=== PATIENT | male | born 2000 | race Two or more races ===

== ENCOUNTER 2019-01-05 20:22 | Emergency (ER) | payer OTHER ==
[2019-01-05 20:28] VITALS: BP 122/67; PULSE 64; TEMP 97.9; BMI 21.4
[2019-01-05] MEDS ORDERED: BACITRACIN 15 GM TUBE TOPICAL OINTMENT TP ONE (21:01)
--- NOTE | 2019-01-05 21:06 | PDOC ---
History of Present Illness - General Chief Complaint: Wound Stated Complaint: leg swelling Time Seen by Provider: 01/05/19 20:47 History Source: Patient Exam Limitations: No Limitations - History of Present Illness Initial Comments: 01/05/19 21:06 HISTORY OF PRESENT ILLNESS: 18-year-old male denies medical history presents emergency department for evaluation of redness and pain to his hip. Patient states she's had the pain for approximately one week after sliding on an indoor soccer field block playing soccer. Reported immediately had some road rash to his left hip after sliding but since that time erythema has progressed to 2 separate areas 1 immediately above and the other one below the initial area of redness. He denies any fevers, chills, discharge or drainage from the wounds. No recent travel or sick contacts. PAST MEDICAL HISTORY: Denies past medical history SURGICAL HISTORY: Denies ALLERGIES: No known drug allergies REVIEW OF SYSTEMS General/Constitutional: Denies fever or chills. Denies weakness, weight change. HEENT: Denies change in vision. Denies ear pain or discharge. Denies sore throat. Cardiovascular: Denies chest pain or shortness of breath. Respiratory: Denies cough, wheezing, or hemoptysis. Gastrointestinal: Denies nausea, vomiting, diarrhea or constipation. Denies rectal bleeding. Genitourinary: Denies dysuria, frequency, or change in urination. Musculoskeletal: see HPI Skin and breasts: Denies rash or easy bruising. Neurologic: Denies headache, vertigo, loss of consciousness, or loss of sensation. Psychiatric: Denies depression or anxiety. Endocrine: Denies increased thirst. Denies abnormal weight change. Hematologic/Lymphatic: Denies anemia, easy bleeding, or history of blood clots. Allergic/Immunologic: Denies hives or skin allergy. Denies latex allergy. PHYSICAL EXAM General Appearance: Well-appearing, appropriately dressed. No apparent distress , no intoxication. Lymphatic: Left inguinal lymphadenopathy noted. Musculoskeletal/Extremities: Left hip erythematous with multiple abrasions present in the area of erythema. 2 separate indurated areas 1 to the left lateral hip over the area of the trochanter. Serious 3 cm circular induration without any fluctuance present. No drainage from the wounds. Wound #2 is left lateral mid thigh approximately 3 cm circular area of induration without fluctuance noted. There is no streaking from either wound. Integumentary:see MSK assessment Neurologic: accounting specialist II-XII intact. Fully oriented, alert. Appropriate mood/affect. Motor strength 5/5. No appreciable EOM palsy, facial droop or sensory deficit. Past History - Past Medical History Allergies/Adverse Reactions: Allergies Allergy/AdvReac Type Severity Reaction Status Date / Time No Known Allergies Allergy Verified 01/05/19 20:28 Home Medications: Ambulatory Orders Cephalexin Monohydrate [Keflex -] 500 mg PO Q6H #28 capsule 01/05/19 Sulfamethoxazole/Trimethoprim [Bactrim Ds -] 1 tab PO BID #14 tablet 01/05/19 COPD: No DVT: No - Immunization History Immunization Up to Date: No - Suicide/Smoking/Psychosocial Hx Smoking History: Never smoked Have you smoked in the past 12 months: No Information on smoking cessation initiated: No Hx Alcohol Use: No Drug/Substance Use Hx: No Substance Use Type: None *Physical Exam - Vital Signs Last Vital Signs Temp Pulse Resp BP Pulse Ox 97.9 F 64 16 122/67 100 01/05/19 20:26 01/05/19 20:26 01/05/19 20:26 01/05/19 20:26 01/05/19 20:26 ED Treatment Course - LABORATORY CBC & Chemistry Diagram: 01/05/19 21:20 Medical Decision Making - Medical Decision Making 01/05/19 21:10 A/P: 18-year-old male with left upper leg cellulitis Palpable left inguinal lymph node noted No areas of fluctuance present to drain. CBC Bacitracin to abrasions Reassess 01/05/19 21:33 CBC is within normal limits. I will discharge the patient home with prescription for Keflex and Bactrim. Patient has been instructed to apply bacitracin to abrasions present to left lateral hip. I discussed the physical exam findings, ancillary test results and final diagnoses with the patient. I answered all of the patient's questions. The patient was satisfied with the care received and felt comfortable with the discharge plan and treatment plan. The patient will call their primary care physician within 24 hours to arrange follow-up and will return to the Emergency Department with any new, persistent or worsening symptoms. *DC/Admit/Observation/Transfer Diagnosis at time of Disposition: Cellulitis Qualifiers: Site of cellulitis: extremity Site of cellulitis of extremity: lower extremity Laterality: left Qualified Code(s): L03.116 - Cellulitis of left lower limb - Discharge Dispostion Disposition: HOME Condition at time of disposition: Stable Decision to Admit order: No - Prescriptions Prescriptions: Cephalexin Monohydrate [Keflex -] 500 mg PO Q6H #28 capsule Sulfamethoxazole/Trimethoprim [Bactrim Ds -] 1 tab PO BID #14 tablet - Referrals Referrals: Juanito Camilo MD [Primary Care Provider] - - Patient Instructions Additional Instructions: Take Keflex 500 mg 4 times a day for the next 7 days Take Bactrim DS one tablet twice a day for the next 7 days Finish all antibiotics even if you feel better. Apply warm compresses to your ear as needed. Do not replace the earrings. Return to emergency department for any worsening pain, drainage, hearing loss, or any other concerns. Thank you very much for choosing us to provide your emergent health care needs. - Post Discharge Activity
[2019-01-05] MEDS ORDERED: BACITRACIN 0.9 GM PACKET ONE (21:12)
[2019-01-05 21:26] LABS: BASO % 0.6 % (0-2.0); EOS % 0.7 % (0-4.5); HEMATOCRIT 39.2 % (35.4-49); HEMOGLOBIN 13.4 GM/dL (11.7-16.9); LYMPH % 18.2 % (8-40); MCH 29.7 pg (25.7-33.7); MCHC 34.1 g/dl (32.0-35.9); MEAN CELL VOLUME 87.1 fl (80-96); MEAN PLT VOLUME 10.6 fl (7.5-11.1); MONO % 8.6 % (3.8-10.2); NEUT % 71.9 % (42.8-82.8); PLATELET COUNT 169 K/MM3 (134-434); RBC 4.51 M/mm3 (4.00-5.60); RDW 13.8 % (11.9-15.9); WHITE BLOOD COUNT 9.2 K/mm3 (4.0-10.0)
== END 2019-01-05 21:52 | disposition home or self-care (01) ==
LOC: JERFT 20:22
DX: L03.116 Cellulitis of left lower limb (principal); S70.312A Abrasion, left thigh, initial encounter; L03.818 Cellulitis of other sites; W18.39XA Other fall on same level, initial encounter; Y93.66 Activity, soccer; Y92.322 Soccer field as the place of occurrence of the external cause; Y99.8 Other external cause status
CPT/HCPCS: 36415; 85025; 99281-25

== ENCOUNTER 2019-01-09 10:01 | Emergency (ER) | payer OTHER ==
[2019-01-09 10:14] VITALS: BP 111/61; PULSE 58; TEMP 98.5; BMI 22.0
[2019-01-09] MEDS ORDERED: LIDOCAINE HCL/PF 1% SDV 5ML VIAL ONE (10:38)
[2019-01-09] MEDS ORDERED: LIDOCAINE HCL 1%, 10 MG/ML (50 mL VIAL) SQ ONE (10:38)
--- NOTE | 2019-01-09 10:38 | PDOC ---
History of Present Illness - General Chief Complaint: Wound Stated Complaint: SENT BY PCP/[facility] Time Seen by Provider: 01/09/19 10:19 History Source: Patient - History of Present Illness Timing/Duration: reports: other, week Location: reports: extremities Past History - Past Medical History Allergies/Adverse Reactions: Allergies Allergy/AdvReac Type Severity Reaction Status Date / Time No Known Allergies Allergy Verified 01/05/19 20:28 Home Medications: Ambulatory Orders Acetaminophen [Tylenol] 650 mg PO PRN 01/05/19 Cephalexin Monohydrate [Keflex -] 500 mg PO Q6H #28 capsule 01/05/19 Sulfamethoxazole/Trimethoprim [Bactrim Ds -] 1 tab PO BID #14 tablet 01/05/19 COPD: No DVT: No - Immunization History Immunization Up to Date: No - Suicide/Smoking/Psychosocial Hx Smoking History: Never smoked Have you smoked in the past 12 months: No Information on smoking cessation initiated: No Hx Alcohol Use: No Drug/Substance Use Hx: No Substance Use Type: None Review of Systems - Review of Systems Constitutional: No: Chills, Fever, Malaise, Weakness Integumentary: Yes: Erythema *Physical Exam - Vital Signs Last Vital Signs Temp Pulse Resp BP Pulse Ox 98.5 F 58 L 18 111/61 99 01/09/19 10:10 01/09/19 10:10 01/09/19 10:10 01/09/19 10:10 01/09/19 10:10 - Physical Exam General Appearance: Yes: Appropriately Dressed. No: Apparent Distress HEENT: positive: Normal Voice Neck: positive: Supple Respiratory/Chest: negative: Respiratory Distress Integumentary: positive: Dry, Warm, Other (~3x2cm fluctuant induration to proximal L thigh w/ surrounding erythema, old healing abrasion and ruptured abscess both noted over L hip) Neurologic: positive: Fully Oriented, Alert, Normal Mood/Affect Procedures - Incision and Drainage I&D Site: Left: Other Betadine cleansed: Yes Anesthesia: 1% Lidocaine Volume(ml): 8 Blade Size: 11 Attempts: 1 (mostly bloody drainage) Plain Packing: No (no packing placed) Complications: none Dressing: Yes Medical Decision Making - Medical Decision Making 01/09/19 10:31 18 yo M, no pmhx, here for evaluation of wound. Was seen in ED 4 days ago for pain and swelling to L thigh. Pt was also c/o additional wounds, including possible infection to a L hip abrasion sustained during soccer 1 month ago and an abscess also over L hip, that has ruptured at home. Pt was dx with cellulitis to L thigh and started on Keflex and Bactrim. Of note, white count was normal. Patient states he continued to have pain, so was seen by his PMD this a.m. who was concern for abscess and sent patient to the ED for I&D. Patient denies any fever or chills and feels well otherwise See exam L thigh abscess/cellulitis s/p ED visit 4 days ago, no I&D done, was started on keflex/bactrim w/ no improvement No systemic sxs Well berta and stable w/ 3x2cm fluctuant induration w/ surrounding cellulitis to laterals aspect of proximal L thigh -I&D -tetanus UTD -will dc w/ 2 day f/u as d/w Dr Pérez who also evaluated pt *DC/Admit/Observation/Transfer Diagnosis at time of Disposition: Abscess - Discharge Dispostion Disposition: HOME Condition at time of disposition: Improved - Referrals Referrals: Juanito Camilo MD [Primary Care Provider] - - Patient Instructions Printed Discharge Instructions: DI for Incision and Drainage of a Skin Abscess Additional Instructions: You had a thigh abscess drained today. Keep area clean, dry and covered for the next 2 days and return to ER for a wound check at that time. If symptoms worsen prior to then, return immediately. Continue taking your antibiotics. Take Motrin or Tylenol [id number] for pain as needed - Post Discharge Activity Forms/Work/School Notes: Back to Work
--- NOTE | 2019-01-09 10:50 | PDOC ---
*Physical Exam - Vital Signs Last Vital Signs Temp Pulse Resp BP Pulse Ox 98.5 F 58 L 18 111/61 99 01/09/19 10:10 01/09/19 10:10 01/09/19 10:10 01/09/19 10:10 01/09/19 10:10 - Physical Exam Comments: 01/09/19 10:50 The patient was examined by [LYLE Dickson] under my direct supervision. I personally evaluated the patient. I concur with the above findings and the plan of care. *DC/Admit/Observation/Transfer - Discharge Dispostion Condition at time of disposition: Stable - Referrals - Patient Instructions - Post Discharge Activity
[2019-01-09] MEDS ORDERED: IBUPROFEN 400 MG TABLET (FP) PO ONE ×2 (10:53→11:06)
--- NOTE | 2019-01-09 10:56 | PDOC ---
*Physical Exam - Vital Signs Last Vital Signs Temp Pulse Resp BP Pulse Ox 98.5 F 58 L 18 111/61 99 01/09/19 10:10 01/09/19 10:10 01/09/19 10:10 01/09/19 10:10 01/09/19 10:10 Medical Decision Making - Medical Decision Making 01/09/19 10:54 Pt seen by Midlevel Provider under my direct supervision Pt interviewed and examined Wound drained No expressible purulence Left leg swelling Treated with Keflex and Bactrim Wound drained minimal purulence Will ask pt to follow up in 2 days for re assessment If fever, increased swelling/pain, return immediately I agree with plan as outlined by Midlevel Provider *DC/Admit/Observation/Transfer Diagnosis at time of Disposition: Abscess - Discharge Dispostion Disposition: HOME Condition at time of disposition: Improved - Referrals Referrals: Juanito Camilo MD [Primary Care Provider] - - Patient Instructions Printed Discharge Instructions: DI for Incision and Drainage of a Skin Abscess Additional Instructions: You had a thigh abscess drained today. Keep area clean, dry and covered for the next 2 days and return to ER for a wound check at that time. If symptoms worsen prior to then, return immediately. Continue taking your antibiotics. Take Motrin or Tylenol [id number] for pain as needed - Post Discharge Activity Forms/Work/School Notes: Back to Work
== END 2019-01-09 11:28 | disposition home or self-care (01) ==
LOC: JER 10:01
PROC: 0H9JXZZ Drainage of Left Upper Leg Skin, External Approach (ICD-10-PCS; principal; 2019-01-09)
DX: L02.416 Cutaneous abscess of left lower limb (principal)
CPT/HCPCS: 99282-25

== ENCOUNTER 2019-01-11 17:16 | Emergency (ER) | payer OTHER ==
[2019-01-11 17:28] VITALS: BP 117/63; PULSE 72; TEMP 98.5; BMI 22.0
--- NOTE | 2019-01-11 18:34 | PDOC ---
Suture Removal/Wound Check HPI - History of Present Illness Chief Complaint: Revisit,Wound Recheck Stated Complaint: Revisit,Wound Recheck Time Seen by Provider: 01/11/19 18:09 History Source: Yes: Patient - Previous ED Treatment Type of procedure performed on last visit: Yes: I&D of Abscess Tetanus Immunization: Yes: Up to Date Past History - Past Medical History Allergies/Adverse Reactions: Allergies Allergy/AdvReac Type Severity Reaction Status Date / Time No Known Allergies Allergy Verified 01/11/19 17:26 Home Medications: Ambulatory Orders Acetaminophen [Tylenol] 650 mg PO PRN 01/05/19 Cephalexin Monohydrate [Keflex -] 500 mg PO Q6H #28 capsule 01/05/19 Sulfamethoxazole/Trimethoprim [Bactrim Ds -] 1 tab PO BID #14 tablet 01/05/19 COPD: No DVT: No - Immunization History Immunization Up to Date: No - Suicide/Smoking/Psychosocial Hx Smoking History: Never smoked Have you smoked in the past 12 months: No Hx Alcohol Use: No Drug/Substance Use Hx: No Substance Use Type: None *Review of Systems - Review of Systems Constitutional: No: Chills, Fever, Malaise *Physical Exam - Vital Signs Last Vital Signs Temp Pulse Resp BP Pulse Ox 98.5 F 72 17 117/63 99 01/11/19 17:26 01/11/19 17:26 01/11/19 17:26 01/11/19 17:26 01/11/19 17:26 - Physical Exam General Appearance: Yes: Appropriately Dressed. No: Apparent Distress HEENT: positive: Normal Voice Neck: positive: Supple Respiratory/Chest: negative: Respiratory Distress Extremity: positive: Other (abscess to lateral aspect of proximal L thigh w/ localized erythema (sig improved since last visit where pt was seen by myself), no e/o reaccumulation) Integumentary: positive: Dry, Warm Neurologic: positive: Fully Oriented, Alert, Normal Mood/Affect Medical Decision Making - Medical Decision Making 01/11/19 18:31 18-year-old male, came in 2 days ago for abscess/cellulitis that was not getting better on antibiotics, s/p I&D by myself 2 days ago and here for wound check today. Patient reports that pain has significantly improved and has not needed to take any pain medications. Continues to take his antibiotics. No fever, chills or malaise. Sent well-appearing and stable with healing wound, erythema significantly improved with no evidence of reaccumulation. Dressing replaced. Patient discharged to continue antibiotics and to return as needed *DC/Admit/Observation/Transfer Diagnosis at time of Disposition: Wound check, abscess - Discharge Dispostion Disposition: HOME Condition at time of disposition: Good - Referrals Referrals: Juanito Camilo MD [Primary Care Provider] - - Patient Instructions Additional Instructions: Your wound appears to be healing well. You can now let water run over wound. Otherwise, keep it covered until wound scabs over. Continue taking antibiotics and if symptoms worsen, please return to ER - Post Discharge Activity
== END 2019-01-11 18:32 | disposition home or self-care (01) ==
LOC: JERFT 17:16
DX: Z48.817 Encounter for surgical aftercare following surgery on the skin and subcutaneous tissue (principal); Z48.01 Encounter for change or removal of surgical wound dressing
CPT/HCPCS: 99281-25